=== PATIENT | male | born 2000 | race African-American/Black ===

== ENCOUNTER 2020-08-23 14:14 | Emergency (ER) | payer SELFPAY ==
[~2020-08-23] VITALS: Ht 182.9 cm; Wt 79.0 kg
[~2020-08-23 14:14] MED LIST: ACET325T21 PO; AZIT250T6 PO; FLUT16SP2 NS; GUAI180L4 PO; LORA-169 PO; PRED50TA PO
[2020-08-23 14:38] VITALS: BP 130/80
[2020-08-23 15:09] LABS: BILIRUBIN,URINE SMALL (NEG); CLARITY,URINE CLEAR; COLOR,URINE AMBER; NITRITE,URINE NEGATIVE (NEG); PROTEIN,URINE 100 mg/dL (NEG-TRACE)
[2020-08-23 15:14] LABS: BACTERIA,URINE 0 /HPF (0-FEW); RBC,URINE 0 /HPF (0-2); WBC,URINE OCC /HPF (0-4)
[2020-08-23] MEDS ORDERED: ACYC-12 PO (17:22)
--- NOTE | 2020-08-23 17:22 | ED.ADGEN ---
Past Medical History Past Medical History: No Pertinent History Additional Past Medical Histor: seasonal allergies; eczema Past Surgical History: No Surgical History Smoking Status: Never Smoker Alcohol Use: None Drug Use: None General Adult EDM: Chief Complaint: SEXUALLY TRANSMITTED DISEASE HPI: HPI: Patient is a 20 year old AA male who presents emergency department with concerns of sexually transmitted infection. Patient reports that he recently had unprotected intercourse with a new partner. Patient reports that about 5 days ago he had a fever for 2 days up to 101. After that he developed blisters and sores on his lips. Patient reports that he developed painless ulcerations on the shaft of his penis and a painful sore to his pubic area over the last 2 days. He reports that he has also had a small amount of abnormal white/yellow penile discharge lately. He denies any dysuria, increased urinary frequency, h ematuria, or difficulty voiding. He denies any abdominal pain, cough, shortness of breath, chest pain, back pain, or rash. He currently denies any pain. Patient reports that he has not been notified of any exposure to a known sexually transmitted infection. Review of Systems: Review of Systems: Complete ROS is negative unless otherwise noted in HPI. Allergies: Allergies: Allergies Coded Allergies Type Severity Reaction Last Updated Verified No Known Drug Allergies 10/28/13 No Physical Exam: PE: See Above Constitutional: Well developed, well nourished, no acute distress, non-toxic appearance. [] HENT: Normocephalic, atraumatic, bilateral external ears normal, nose normal. [] Eyes: PERRLA, EOMI, conjunctiva normal, no discharge. [] Neck: Normal range of motion, no stridor. [] Cardiovascular:Heart rate regular rhythm Lungs & Thorax: Respirations even and unlabored, no retractions, no respiratory distress Abdomen: soft, no tenderness Male : Normal urethra, painless ulcerations noted to the shaft of the penis and a painful ulceration at the base of the penis was present Skin: Warm, dry, no erythema, no rash. [] Extremities: No cyanosis, ROM intact, no edema. [] Neurologic: Alert and oriented X 3, no focal deficits noted. [] Psychologic: Affect normal, judgement normal, mood normal. [] Current Patient Data: Labs: Laboratory Tests Test 08/23/20 12:45 08/23/20 15:49 Urine Collection Type Unknown Urine Color Pamela Urine Clarity Clear Urine pH 6.0 (<5.0-8.0) Urine Specific [place] >=1.030 (1.000-1.030) Urine Protein 100 mg/dL (NEG-TRACE) Urine Glucose (UA) Negative mg/dL (NEG) Urine Ketones (Stick) >=80 mg/dL (NEG) Urine Blood Negative (NEG) Urine Nitrite Negative (NEG) Urine Bilirubin Small (NEG) Urine Urobilinogen Dipstick 1.0 mg/dL (0.2 mg/dL) Urine Leukocyte Esterase Negative (NEG) Urine RBC 0 /HPF (0-2) Urine WBC Occ /HPF (0-4) Urine Bacteria 0 /HPF (0-FEW) Urine Mucus Marked /LPF Treponema pallidum Antibody Nonreactive (Nonreactive) Vital Signs: Vital Signs Date Time Temp Pulse Resp B/P (MAP) Pulse Ox O2 Delivery O2 Flow Rate FiO2 08/23/20 14:38 98.1 99 16 130/80 (97) 97 Room Air 98.1 EKG: EKG: [] Heart Score: Risk Factors: Risk Factors: DM, Current or recent (<one month) smoker, HTN, HLP, family history of CAD, obesity. Risk Scores: Score 0 - 3: 2.5% MACE over next 6 weeks - Discharge Home Score 4 - 6: 20.3% MACE over next 6 weeks - Admit for Clinical Observation Score 7 - 10: 72.7% MACE over next 6 weeks - Early Invasive Strategies Radiology/Procedures: Radiology/Procedures: [] Course & Med Decision Making: Course & Med Decision Making Pertinent Labs and Imaging studies reviewed. (See chart for details) Herpes cultures were collected in addition to gonorrhea/chlamydia specimens. Patient was tested for syphilis, syphilis test came back negative. Prescription was written for acyclovir. Advised the patient that the gonorrhea and Chlamydia results are pending, advised him that he has not been treated for gonorrhea and chlamydia I will defer treating for these 2 conditions as he is likely suffering from genital herpes at this time. I encouraged the patient to follow-up with his primary care doctor this week for reevaluation. Patient was instructed to return to the ER if symptoms worsened or fever develops. Patient verbalized an understanding of home care, medications, follow-up, and return to ED instructions and was in agreement with the plan of care. [] Jorje Disclaimer: Jorje Disclaimer: This electronic medical record was generated, in whole or in part, using a voice recognition dictation system. Departure Departure Impression: Primary Impression: Genital herpes Disposition: 01 DC HOME SELF CARE/HOMELESS Condition: STABLE Referrals: NO PCP (PCP) Patient Instructions: Genital Herpes Additional Instructions: Fill the prescription and use as directed. The herpes culture will not be back for at least 4 to 5 days. Gonorrhea and Chlamydia testing results will not be available for at least 2 days. If you have gonorrhea or chlamydia you will require further treatment. Please follow-up with your primary care doctor next week, return to the ER if symptoms worsen or fever develops. . [facility] [address] [place] [address] [facility] [address] [place] [address] [facility] [address] [place] [address] [facility] [address] [place] [address] [facility] [address] [place] [address] [facility] [address] [place] [address] [facility] [address] [place] [address] [facility] [address] [place] [address] [facility] [address] [place] [address] [facility] [address] [place] [address] Scripts Acyclovir (ACYCLOVIR) 400 Mg Tablet 1 TAB PO TID, #30 TAB 0 Refills Prov: [employer] 08/23/20 Problem Qualifiers Primary Impression: Genital herpes Herpes simplex infection site: penis Qualified Codes: A60.01 - Herpesviral infection of penis [employer] Aug 23, 2020 17:22
[2020-08-27 08:18] LABS: HERPES SIMPLEX TYPE 1 Negative (Negative); HERPES SIMPLEX TYPE 2 Positive (Negative)
== END 2020-08-23 17:29 | disposition home or self-care (01) ==
LOC: ER 14:14
DX: A60.01 Herpesviral infection of penis (principal)
CPT/HCPCS: 36415; 81001; 86592; 87491; 87529; 87591; 99283